=== PATIENT | male | born 2005 | race Caucasian/White ===

== ENCOUNTER 2023-12-15 18:41 | Emergency (ER) | payer MEDICAID, SELFPAY ==
--- NOTE | ~2023-12-15 | XR_ITS ---
EXAMINATION: LEFT ANKLE, LEFT FOOT CLINICAL INFORMATION: Status post rolling ankle injury while playing basketball with pain in ankle and foot COMPARISON: None available. TECHNIQUE: 2 views ankle with 3 views foot FINDINGS: There is marked soft tissue swelling laterally. The ankle mortise appears stable. No fractures or dislocations are seen. XR/XR ankle LT min 3V IMPRESSION: Soft tissue swelling without fracture.
--- NOTE | ~2023-12-15 | XR_ITS ---
EXAMINATION: LEFT ANKLE, LEFT FOOT CLINICAL INFORMATION: Status post rolling ankle injury while playing basketball with pain in ankle and foot COMPARISON: None available. TECHNIQUE: 2 views ankle with 3 views foot FINDINGS: There is marked soft tissue swelling laterally. The ankle mortise appears stable. No fractures or dislocations are seen. XR/XR foot LT min 3V IMPRESSION: Soft tissue swelling without fracture.
[2023-12-15 18:58] VITALS: BP 100/49; PULSE 87; RESP 16; TEMP 36; O2SAT 99; BMI 22.0
--- NOTE | 2023-12-15 19:52 | ED.LOWEXIN ---
HPI - Extremity Injury (Lower) General Chief Complaint: Extremity Injury, Lower Stated Complaint: left ankle inj Time Seen by Provider: 12/15/23 19:52 Source: patient Mode of arrival: ambulatory Limitations: no limitations History of Present Illness ED Provider: Rayne Live PA-C HPI Narrative: 18-year-old male presents to the ER for evaluation of left ankle pain after rolling it playing basketball yesterday. He states today woke up with increased pain, swelling and inability to ambulate on his left foot due to pain. Pain is located on the outside of the ankle, worse with movement and weight bearing. No other injuries. MD complaint: ankle injury Onset (ago): day(s) (1) Type of Injury: inversion Place: street/outdoors Severity: severe Severity scale (1-10): 8 Relieving factors: immobilization and rest Exacerbating factors: weight bearing, movement and palpation Context: jumping Associated symptoms: swelling and unable to bear weight Other symptoms: none Related Data Previous Rx's ?Medication ?Instructions ?Recorded ibuprofen 600 mg tablet 600 mg PO Q8H PRN pain #10 tabs 12/15/23 Allergies Allergy/AdvReac Type Severity Reaction Status Date / Time No Known Allergies Allergy Verified 12/15/23 18:59 Review of Systems Review of Systems: Yes all other systems are reviewed and are negative PMFSH Social History Social History Advance Directives: No Advance Directives Information Provided: No Physical Exam Vital Signs: Vital Signs: Last Vital Signs Temp 96.8 F 12/15/23 18:58 Pulse 87 12/15/23 18:58 Resp 16 12/15/23 18:58 BP 100/49 L 12/15/23 18:58 Pulse Ox 99 12/15/23 18:58 O2 Del Method Room Air 12/15/23 18:58 BMI result Body Mass Index 22.0 Appearance: Alert. Oriented X3. No acute distress. HEENT: normal inspection CVS: Normal heart rate and rhythm. Pulses normal. Respiratory: No respiratory distress. Skin: Skin warm and dry. Normal skin color. Normal skin turgor. No rashes. Extremities: Moderate generalized soft tissue swelling to the lateral left ankle with decreased range of motion due to pain and swelling. No point tenderness of the foot. Foot is warm and well perfused with 2+ DP and PT pulses. Neuro: Oriented X 3. No motor deficit. No sensory deficit. Gait not tested due to pain Medical Decision Making Medical Decision Making MDM Narrative: 18-year-old male presents to the ER for evaluation of left ankle pain, swelling, inability to ambulate after he rolled it while playing basketball yesterday. X-ray was reviewed and there is no acute fracture. Will treat for ankle sprain with compression, rest, ice, elevation. NSAIDs prescribed. Stable for discharge home with crutches p.r.n.. Follow-up with PCP as needed. Patient counseled on diagnosis and management. Differential Diagnosis Differential Diagnoses: The differential diagnosis associated with the presentation includes Ankle sprain, ankle strain, ankle fracture, foot fracture Independent Interpretation I performed an independent interpretation of an: Plain X-Ray Interpretation: No acute fracture of the foot or ankle appreciated, agree with radiology read Radiology Impression Discussion of test interpretation with radiology: I have reviewed the radiologist's reading. Radiologist Impression: EXAMINATION: LEFT ANKLE, LEFT FOOT CLINICAL INFORMATION: Status post rolling ankle injury while playing basketball with pain in ankle and foot COMPARISON: None available. TECHNIQUE: 2 views ankle with 3 views foot FINDINGS: There is marked soft tissue swelling laterally. The ankle mortise appears stable. No fractures or dislocations are seen. XR/XR foot LT min 3V IMPRESSION: Soft tissue swelling without fracture. External Record Review External record reviewed: Outpatient record and Prior outpatient labs Prescription Management I considered prescription management with: Pain Medication Critical Care Time Critical Care Time Critical Care Time: No Discharge Plan Discharge Clinical Impression: Ankle sprain and strain Patient Disposition: Home, Self-Care Instructions: Ankle Sprain (DC) Additional Instructions: Your x-ray today did not show any acute fractures. Rest your ankle and elevate your foot when possible. Recommend VIAKS wrap for support and compression. Use ice several times per day for the next 48 hours. You may bear weight as tolerated. If pain is too severe, use crutches until better. Take Motrin and/or Tylenol as needed for pain. Follow up with your doctor as needed. Prescriptions: New ibuprofen 600 mg tablet 600 mg PO Q8H PRN (Reason: pain) Qty: 10 0RF Print Language: Salvadorean
[2023-12-15 20:21] VITALS: BP 100/49; PULSE 87; RESP 16; TEMP 36; O2SAT 99
== END 2023-12-15 20:21 | disposition home or self-care (01) ==
PROVIDERS: Emergency Provider Emergency Medicine
DX: S93.402A Sprain of unspecified ligament of left ankle, initial encounter (principal); M25.572 Pain in left ankle and joints of left foot; Y93.67 Activity, basketball; Y92.310 Basketball court as the place of occurrence of the external cause; Y99.8 Other external cause status
CPT/HCPCS: 73610; 73630; 99282; 99283